=== PATIENT | male | born 2000 | race Two or more races ===

== ENCOUNTER 2019-06-06 01:16 | Emergency (ER) | payer MEDICAID ==
[~2019-06-06] VITALS: Ht 182.9 cm; Wt 68.0 kg
--- NOTE | 2019-06-06 01:36 | NUR ---
BIBS. C/O "HAVING SOB FOR AROUND A MONTH, HAVE ALSO BEEN VERY ANXIOUS" -SOB NOTED. VSS. AOX4. AMBULATORY
--- NOTE | 2019-06-06 01:44 | NUR ---
XRAY AT BEDSIDE.
[2019-06-06 03:33] VITALS: BP 122/78
== END 2019-06-06 03:34 | disposition home or self-care (01) ==
LOC: ER 01:23
DX: J31.0 Chronic rhinitis (principal); J45.909 Unspecified asthma, uncomplicated
CPT/HCPCS: 71045-TC

== ENCOUNTER 2020-02-21 20:54 | Emergency (ER) | payer MEDICAID ==
[~2020-02-21] VITALS: Ht 182.9 cm; Wt 70.8 kg
[2020-02-21] MEDS ORDERED: TDAP [DIPH/PERTUSSIS/TET] 0.5 ML VIAL IM ONE ×2 (21:30→21:32)
[2020-02-21] MEDS ORDERED: BUPIVACAINE 0.5 % PF 150 MG/30 ML VIAL IJ ONE (21:30)
[2020-02-21] MEDS ORDERED: LIDOCAINE 2% 20 ML MDV IJ ONE (21:30)
[2020-02-21] MEDS ORDERED: IBUPROFEN 400 MG TABLET PO ONE (21:30)
[2020-02-21] MEDS ORDERED: AMOX/CLAVULANATE 875 MG TABLET PO ONE (21:30)
[2020-02-21] MEDS ORDERED: AMOX/CLAVULANATE 875 MG TABLET ONE (21:31)
[2020-02-21] MEDS ORDERED: BUPIVACAINE 0.5 % PF 150 MG/30 ML VIAL ONE (21:31)
[2020-02-21] MEDS ORDERED: LIDOCAINE 2% 20 ML MDV ONE (21:31)
[2020-02-21] MEDS ORDERED: IBUPROFEN 400 MG TABLET ONE (21:31)
--- NOTE | 2020-02-21 21:38 | NUR ---
PA AT BEDSIDE FOR WOUND CARE
--- NOTE | 2020-02-21 22:01 | NUR ---
TAKEN TO XRAY.
--- NOTE | 2020-02-21 22:30 | NUR ---
PER PA CALL HAND SURGEON.
--- NOTE | 2020-02-21 22:30 | NUR ---
PA AT BEDSIDE FOR SUTURES.
--- NOTE | 2020-02-21 23:02 | NUR ---
DR. JESSICA BOURNE PER FUNMI SUMMERS ORDER.
--- NOTE | 2020-02-21 23:32 | NUR ---
EMT AT BEDSIDE WRAPPING PT'S FINGER.
--- NOTE | 2020-02-21 23:47 | NUR ---
DR. JESSICA BOURNE PER FUNMI SUMMERS ORDER.
--- NOTE | 2020-02-22 00:26 | NUR ---
DR. YOUNG PAGED FOR CONSULT.
--- NOTE | 2020-02-22 00:31 | NUR ---
dr guajardo at bed side to explain discharge instructions
--- NOTE | 2020-02-22 00:31 | NUR ---
FUNMI SUMMERS SPOKE TO DR. YOUNG REGARDING PT.
[2020-02-22] MEDS ORDERED: GELATIN SPONGE,ABSORBABLE 1 SPONGE SPONGE TP ONE ×3 (00:33→00:50)
--- NOTE | 2020-02-22 01:16 | NUR ---
pt is medically stable for d/c. good laceration care provided by dr guajardo to manage the bleeding. Patient discharged to home in stable condition. Rx and Written and verbal after care instructions given. Patient verbalizes understanding of instruction. pt was instructed to see Dr. nando ARIAS.
[2020-02-22 01:28] VITALS: BP 135/77
== END 2020-02-22 01:15 | disposition home or self-care (01) ==
LOC: ER 20:56
DX: S61.253A Open bite of left middle finger without damage to nail, initial encounter (principal); J45.909 Unspecified asthma, uncomplicated; W54.0XXA Bitten by dog, initial encounter; Y93.89 Activity, other specified; Y92.89 Other specified places as the place of occurrence of the external cause; Y99.8 Other external cause status
CPT/HCPCS: 73140; 90471; 90715; 99283; J3490 ×2

== ENCOUNTER 2020-02-23 20:35 | Emergency (ER) | payer MEDICAID ==
[~2020-02-23] VITALS: Ht 182.9 cm; Wt 70.8 kg
[2020-02-23 20:39] VITALS: BP 147/87
--- NOTE | 2020-02-23 21:46 | NUR ---
Patient discharged to home in stable condition. Written and verbal after care instructions given. Patient verbalizes understanding of instruction.
== END 2020-02-23 21:46 | disposition home or self-care (01) ==
LOC: ER 20:46
DX: S61.213D Laceration without foreign body of left middle finger without damage to nail, subsequent encounter (principal); J45.909 Unspecified asthma, uncomplicated; W54.0XXD Bitten by dog, subsequent encounter

== ENCOUNTER 2024-09-23 22:29 | Emergency (ER) | payer MEDICAID ==
[~2024-09-23] VITALS: Ht 182.9 cm; Wt 83.9 kg
[2024-09-23] MEDS: LORAZEPAM 1 MG TABLET PO ONE (23:30)
[2024-09-23] MEDS ORDERED: LORAZEPAM 1 MG TABLET ONE (23:34)
[2024-09-24 00:25] VITALS: BP 129/82; TEMP 98.1; O2SAT 100
== END 2024-09-24 00:36 | disposition home or self-care (01) ==
LOC: ER 22:32
DX: R00.2 Palpitations (principal); R42 Dizziness and giddiness; J45.909 Unspecified asthma, uncomplicated; F41.9 Anxiety disorder, unspecified; Z88.7 Allergy status to serum and vaccine
CPT/HCPCS: 82962-TC